=== PATIENT | female | born 1965 | race Caucasian/White ===

== ENCOUNTER → 2016-07-02 | Outpatient (REF) | payer BC ==
[2016-07-02 15:07] LABS: VITAMIN B12 LEVEL 368 PG/ML
[2016-07-02 15:08] LABS: FOLATE > 24.0 NG/ML
[2016-07-02 15:15] LABS: PERCENT SATURATION 19.5 % (13.2-37.4); TOTAL IRON BINDING CAPACITY 498 UG/DL (250-450)
== END ==
LOC: M LAB REF 13:46
PROVIDERS: ATTEND Internal Medicine
DX: Z98.84 Bariatric surgery status (principal)

== ENCOUNTER → 2017-04-21 | Outpatient (REF) | payer BC ==
[2017-04-21 15:06] LABS: INFLUENZA A AMPLIFICATION POSITIVE (NEGATIVE); INFLUENZA B AMPLIFICATION NEGATIVE (NEGATIVE); RSV AMPLIFICATION NEGATIVE (NEGATIVE)
== END ==
LOC: M LAB REF 14:05
DX: J11.1 Influenza due to unidentified influenza virus with other respiratory manifestations (principal)

== ENCOUNTER → 2017-08-26 | Outpatient (REF) | payer BC ==
[2017-08-26 13:02] LABS: FOLATE > 24.0 NG/ML; VITAMIN B12 LEVEL 392 PG/ML
[2017-08-26 13:22] LABS: IRON (FE) 56 UG/DL (50-170); PERCENT SATURATION 10.2 % (13.2-45.0); TOTAL IRON BINDING CAPACITY 549 UG/DL (250-450)
== END ==
LOC: M LAB REF 12:21
DX: D50.9 Iron deficiency anemia, unspecified (principal)
CPT/HCPCS: 82746

== ENCOUNTER → 2018-12-04 | Outpatient (REF) | payer BC ==
[2018-12-04 19:27] LABS: PERCENT SATURATION 7.5 % (13.2-45.0)
[2018-12-04 19:48] LABS: FOLATE 16.3 NG/ML
== END ==
LOC: M LAB REF 16:49
PROVIDERS: ATTEND Internal Medicine
DX: Z98.84 Bariatric surgery status (principal)

== ENCOUNTER → 2019-01-20 | Outpatient (REF) | payer BC ==
[2019-01-20 13:02] LABS: PERCENT SATURATION 7.7 % (13.2-45.0)
== END ==
LOC: M LAB REF 12:42
PROVIDERS: ATTEND Internal Medicine
DX: D50.9 Iron deficiency anemia, unspecified (principal)

== ENCOUNTER 2019-04-05 10:19 | Day surgery (SDC) | payer BC ==
[~2019-04-05] VITALS: Ht 162.6 cm; Wt 77.6 kg
[~2019-04-05 10:19] MED LIST: BELS1TAB2 PO; BIOT1CAP2 PO; CRAN200C PO; FERR325T3 PO; FLORCAP10 PO; HYDR-3363 PO; INVO300T PO; METF750T36 PO; NS 1,000 ML IV SCH; ROSU10TA6 PO; SUPETAB44 PO; VITA100T59 PO; [UNRECOGNIZED DRUG - OTHER] PA
[2019-04-05] MEDS ORDERED: fentaNYL 100 MCG/2 ML INJECTION (J3010) As Ordered ONE (12:00)
[2019-04-05] MEDS ORDERED: LIDOCAINE 2% INJ 100 MG/5 ML SDV (FOR ANES.) As Ordered ONE (12:04)
[2019-04-05] MEDS ORDERED: propofoL 200 MG/20 ML VIAL As Ordered ONE (12:04)
--- NOTE | 2019-04-05 12:39 | ROOR ---
Patient Name: June Macho Procedure Date: 04/05/2019 11:57 AM Date of : 1965 Age: 53 Room: [facility] Gender: Female Note Status: Finalized Procedure: Upper Endoscopy + Biopsies Indications: Iron deficiency anemia Providers: Jose Travis MD Referring MD: ELISABETH TORREZ JR, MD Requesting Provider: Medicines: Monitored Anesthesia Care Complications: No immediate complications. Procedure: Pre-Anesthesia Assessment: - The heart rate, respiratory rate, oxygen saturations, blood pressure, adequacy of pulmonary ventilation, and response to care were monitored throughout the procedure. The Endoscope was introduced through the mouth, and advanced to the second part of duodenum. The upper GI endoscopy was accomplished without difficulty. The patient tolerated the procedure well. Findings: The Z-line was regular and was found 40 cm from the incisors. Multiple biopsies were obtained with cold forceps for evaluation to rule out Ma's Esophagus randomly at the gastroesophageal junction. A small hiatal hernia was present. Evidence of a gastric bypass was found. A gastric pouch with a small size was found. The staple line appeared intact. The gastrojejunal anastomosis was characterized by healthy appearing mucosa. This was traversed. The [id number] limb was characterized by healthy appearing mucosa. The jejunojejunal anastomosis was characterized by healthy appearing mucosa. The exam was otherwise without abnormality. Impression: - Z-line regular, 40 cm from the incisors. - Small hiatal hernia. - Gastric bypass with a small-sized pouch and intact staple line. Gastrojejunal anastomosis characterized by healthy appearing mucosa. - The examination was otherwise normal. - Multiple biopsies were obtained at the gastroesophageal junction. Recommendation: - Patient has a contact number available for emergencies. The signs and symptoms of potential delayed complications were discussed with the patient. Return to normal activities tomorrow. Written discharge instructions were provided to the patient. - Discharge patient to home. - Follow an antireflux regimen. - Continue present medications. - Await pathology results. - Telephone GI clinic for pathology results in 1 week. - Return to referring physician. - The findings and recommendations were discussed with the patient's family. Jose Travis MD Jose Travis MD 04/05/2019 12:38:43 PM Electronically signed by Jose Travis MD Number of Addenda: 0 Note Initiated On: 04/05/2019 11:57 AM Estimated Blood Loss: Estimated blood loss: none.
--- NOTE | 2019-04-05 12:41 | ROOR ---
Patient Name: June Macho Procedure Date: 04/05/2019 11:57 AM Date of : 1965 Age: 53 Room: [facility] Gender: Female Note Status: Finalized Procedure: Total Colonoscopy to Cecum Indications: Screening for colorectal malignant neoplasm Providers: Jose Travis MD Referring MD: ELISABETH TORREZ JR, MD Requesting Provider: Medicines: Monitored Anesthesia Care Complications: No immediate complications. Procedure: Pre-Anesthesia Assessment: - The heart rate, respiratory rate, oxygen saturations, blood pressure, adequacy of pulmonary ventilation, and response to care were monitored throughout the procedure. The Colonoscope was introduced through the anus and advanced to the cecum, identified by appendiceal orifice and ileocecal valve. The colonoscopy was performed without difficulty. The patient tolerated the procedure well. The quality of the bowel preparation was excellent. Findings: The perianal and digital rectal examinations were normal. No other significant abnormalities were identified in a careful examination of the remainder of the colon. The exam was otherwise without abnormality on direct and retroflexion views. Impression: - The examination was otherwise normal on direct and retroflexion views. - No specimens collected. - The exam was otherwise normal to the cecum. Recommendation: - Patient has a contact number available for emergencies. The signs and symptoms of potential delayed complications were discussed with the patient. Return to normal activities tomorrow. Written discharge instructions were provided to the patient. - High fiber diet. - Discharge patient to home. - Continue present medications. - Repeat colonoscopy in 10 years for screening purposes. - Return to referring physician. - The findings and recommendations were discussed with the patient's family. Jose Travis MD Jose Travis MD 04/05/2019 12:40:52 PM Electronically signed by Jose Travis MD Number of Addenda: 0 Note Initiated On: 04/05/2019 11:57 AM Estimated Blood Loss: Estimated blood loss: none.
[2019-04-05 13:00] VITALS: BP 134/59
== END 2019-04-05 13:12 | disposition home or self-care (01) ==
LOC: M OPP 10:19
PROVIDERS: ATTEND Internal Medicine Gastroenterology
DX: D50.9 Iron deficiency anemia, unspecified (principal); K44.9 Diaphragmatic hernia without obstruction or gangrene; Z98.84 Bariatric surgery status; Z12.11 Encounter for screening for malignant neoplasm of colon; E11.9 Type 2 diabetes mellitus without complications; J45.909 Unspecified asthma, uncomplicated; Z87.440 Personal history of urinary (tract) infections; Z79.899 Other long term (current) drug therapy; Z79.84 Long term (current) use of oral hypoglycemic drugs; Z88.5 Allergy status to narcotic agent
CPT/HCPCS: 43239; 45378; 88305; J3010

== ENCOUNTER → 2019-06-14 | Outpatient (REF) | payer BC ==
[~2019-06-14] MED LIST changes: -NS 1,000 ML IV SCH
[2019-06-15 12:55] LABS: PERCENT SATURATION 16.9 % (13.2-45.0)
== END ==
LOC: M LAB REF 12:11
PROVIDERS: ATTEND Internal Medicine
DX: D50.9 Iron deficiency anemia, unspecified (principal)

== ENCOUNTER → 2020-03-12 | Outpatient (CLI) | payer SELFPAY | LOC: M LABSMTC 11:21 | PROVIDERS: ATTEND Pediatrics | DX: Z20.828 Contact with and (suspected) exposure to other viral communicable diseases (principal) ==

== ENCOUNTER → 2020-05-09 | Outpatient (REF) | payer BC ==
[2020-05-09 12:16] LABS: PERCENT SATURATION 24.7 % (13.2-45.0)
[2020-05-09 12:28] LABS: FOLATE 6.4 NG/ML
== END ==
LOC: M LAB REF 11:18
PROVIDERS: ATTEND Internal Medicine
DX: D50.9 Iron deficiency anemia, unspecified (principal); Z98.84 Bariatric surgery status

== ENCOUNTER → 2020-10-31 | Outpatient (REF) | payer BC ==
[2020-10-31 13:13] LABS: APPEARANCE, URINE HAZY (CLEAR); BACTERIA, URINE AUTO 1+ (NEGATIVE); BILIRUBIN, URINE AUTO NEGATIVE (NEGATIVE); BLOOD, URINE BLOOD 1+ (NEGATIVE); COLOR, URINE YELLOW (YELLOW); GLUCOSE, URINE (UA) AUTO 3+ mg/dL (NEGATIVE); KETONE, URINE AUTO NEGATIVE (NEGATIVE); LEUKOCYTE ESTERASE, URINE AUTO 1+ (NEGATIVE); MUCUS, URINE SMALL (NEGATIVE); NITRITE, URINE AUTO NEGATIVE (NEGATIVE); PROTEIN, URINE AUTO NEGATIVE (NEGATIVE); RBC, URINE AUTO 2 /HPF (0-3); SPECIFIC GRAVITY URINE AUTO 1.032 (1.002-1.035); SQUAMOUS EPITHELIAL CELL UR AU 2 /HPF (0-6); UROBILINOGEN, URINE AUTO 0.2 mg/dL (0.0-2.0); WBC, URINE AUTO 6 /HPF (0-3)
== END ==
LOC: M LAB REF 11:44
PROVIDERS: ATTEND Physician Assistant Medical
DX: N39.0 Urinary tract infection, site not specified (principal)

== ENCOUNTER → 2021-03-12 | Outpatient (REF) | LOC: M LABSMTC 09:19 | PROVIDERS: ATTEND Pediatrics | DX: Z11.52 Encounter for screening for COVID-19 (principal) ==

== ENCOUNTER → 2021-09-20 | Outpatient (REF) | payer BC ==
[2021-09-20 12:56] LABS: PERCENT SATURATION 8.7 % (13.2-45.0)
== END ==
LOC: M LAB REF 12:07
PROVIDERS: ATTEND Internal Medicine
DX: Z98.84 Bariatric surgery status (principal); D50.9 Iron deficiency anemia, unspecified

== ENCOUNTER → 2021-12-31 | Outpatient (REF) | payer BC | LOC: M LAB REF 16:07 | PROVIDERS: ATTEND Internal Medicine | DX: Z98.84 Bariatric surgery status (principal); D50.9 Iron deficiency anemia, unspecified ==

== ENCOUNTER → 2022-07-05 | Outpatient (REF) | payer BC ==
[2022-07-05 13:45] LABS: PERCENT SATURATION 22.9 % (13.2-45.0)
== END ==
LOC: M LAB REF 12:10
PROVIDERS: ATTEND Internal Medicine
DX: Z98.84 Bariatric surgery status (principal); D50.9 Iron deficiency anemia, unspecified

== ENCOUNTER → 2022-12-25 | Outpatient (REF) | payer BC | LOC: M SFHCWAGY 10:17 | PROVIDERS: ATTEND Obstetrics & Gynecology | DX: Z12.4 Encounter for screening for malignant neoplasm of cervix (principal); Z01.419 Encounter for gynecological examination (general) (routine) without abnormal findings; Z77.9 Other contact with and (suspected) exposures hazardous to health ==

== ENCOUNTER → 2023-02-17 | Outpatient (REF) | payer BC | LOC: M SFHCWAGY 17:25 | PROVIDERS: ATTEND Obstetrics & Gynecology | DX: N93.9 Abnormal uterine and vaginal bleeding, unspecified (principal) ==

== ENCOUNTER → 2023-10-21 | Outpatient (REF) | payer BC ==
[~2023-10-21] MED LIST changes: -ROSU10TA6 PO; +ROSU10TA61 PO
[2023-10-21 18:54] LABS: IRON (FE) 16 UG/DL (50-170); PERCENT SATURATION 3.7 % (13.2-45.0); PHOSPHORUS LEVEL 4.3 MG/DL (2.5-4.9); TOTAL IRON BINDING CAPACITY 429 UG/DL (250-425)
[2023-10-21 19:14] LABS: HEPATITIS B SURFACE ANTIGEN NEGATIVE (NEGATIVE)
[2023-10-21 19:35] LABS: HEPATITIS C VIRUS ABY INDEX < 0.02 INDEX (<0.8)
== END ==
LOC: M LAB REF 16:27
PROVIDERS: ATTEND Internal Medicine
DX: D50.9 Iron deficiency anemia, unspecified (principal); R74.01 Elevation of levels of liver transaminase levels

== ENCOUNTER → 2023-11-18 | Outpatient (REF) | payer BC | LOC: M LAB REF 11:38 | PROVIDERS: ATTEND Internal Medicine | DX: D50.9 Iron deficiency anemia, unspecified (principal) ==

== ENCOUNTER → 2023-12-08 | Outpatient (CLI) | payer BC | LOC: M RAD 08:49 | PROVIDERS: ATTEND Internal Medicine | DX: R74.01 Elevation of levels of liver transaminase levels (principal) ==

== ENCOUNTER → 2023-12-12 | Outpatient (CLI) | payer BC | LOC: M WHC 13:45 | PROVIDERS: ATTEND Obstetrics & Gynecology | DX: N93.9 Abnormal uterine and vaginal bleeding, unspecified (principal) ==

== ENCOUNTER → 2024-01-01 | Outpatient (REF) | payer BC ==
[2024-01-01 14:25] LABS: PERCENT SATURATION 14.6 % (13.2-45.0)
== END ==
LOC: M LAB REF 12:37
PROVIDERS: ATTEND Internal Medicine
DX: D50.9 Iron deficiency anemia, unspecified (principal)

== ENCOUNTER → 2024-02-18 | Outpatient (CLI) | payer BC ==
[~2024-02-18] MED LIST changes: +CLON0.5T2 PO; +FARX1TAB3 PO; +GABA-1171 PO; +SEMA0.257; +VITA100093 PO
== END ==
LOC: M EKG 13:58
PROVIDERS: ATTEND Anesthesiology
DX: R00.1 Bradycardia, unspecified (principal); E11.9 Type 2 diabetes mellitus without complications

== ENCOUNTER 2024-03-02 06:04 | Day surgery (SDC) | payer BC ==
[~2024-03-02] VITALS: Ht 160 cm; Wt 62.6 kg
[~2024-03-02 06:04] MED LIST changes: +LR 1,000 ML IV SCH; +ONDANSETRON 4MG 2ML VIAL IV PRN; +fentaNYL 100 MCG/2 ML INJECTION IV PRN; +traMADol 50 MG TAB PO ONE
[2024-03-02] MEDS ORDERED: LR 1,000 ML IV SCH (06:30)
[2024-03-02 06:56] LABS: HEMATOCRIT 39.9 % (36.0-47.0); HEMOGLOBIN 12.6 g/dl (12.0-15.5); MEAN CORPUSCULAR HEMOGLOBIN 26.2 pg (27.0-33.0); MEAN CORPUSCULAR HGB CONC 31.6 g/dl (32.0-36.5); PLATELET COUNT, AUTOMATED 291 10^3/uL (150-450); RED BLOOD COUNT 4.81 10^6/uL (4.00-5.40); WHITE BLOOD COUNT 5.2 10^3/uL (4.0-10.0)
[2024-03-02] MEDS ORDERED: propofoL 200 MG/20 ML VIAL As Ordered ONE (06:57)
[2024-03-02] MEDS ORDERED: LIDOCAINE 2% 100MG/5ML SDV (FOR ANES.) As Ordered ONE (06:57)
[2024-03-02] MEDS ORDERED: ONDANSETRON 4MG 2ML VIAL As Ordered ONE (06:58)
[2024-03-02] MEDS ORDERED: KETOROLAC 60MG 2ML VIAL As Ordered ONE (06:58)
[2024-03-02] MEDS ORDERED: fentaNYL 100 MCG/2 ML INJECTION As Ordered ONE (07:01)
[2024-03-02] MEDS ORDERED: MIDAZOLAM INJ 2MG/2ML VIAL As Ordered ONE (07:01)
[2024-03-02] MEDS ORDERED: ACETAMINOPHEN 1000MG/100ML IV BAG As Ordered ONE (07:58)
[2024-03-02] MEDS ORDERED: MORPHINE 2 MG/ML 1ML VIAL IV PRN (08:25)
[2024-03-02] MEDS ORDERED: ONDANSETRON 4MG 2ML VIAL IV PRN (08:25)
[2024-03-02] MEDS ORDERED: fentaNYL 100 MCG/2 ML INJECTION IV PRN (08:25)
[2024-03-02] MEDS: oxyCODONE 5MG TAB PO PRN (09:10)
[2024-03-02 10:22] VITALS: BP 112/66; TEMP 97.3; O2SAT 99
== END 2024-03-02 10:24 | disposition home or self-care (01) ==
LOC: M SDC 06:04
PROVIDERS: ATTEND Obstetrics & Gynecology
DX: N93.9 Abnormal uterine and vaginal bleeding, unspecified (principal); N95.0 Postmenopausal bleeding; E11.9 Type 2 diabetes mellitus without complications; Z79.899 Other long term (current) drug therapy
CPT/HCPCS: 36415; 58563; 81025; 85027; 86850; 86900; 86901; 88305; J0131; J1100; J1885; J2250; J2405; J3010

== ENCOUNTER → 2024-04-19 | Outpatient (REF) | payer OTHER ==
[~2024-04-19] MED LIST changes: -LR 1,000 ML IV SCH; -ONDANSETRON 4MG 2ML VIAL IV PRN; -fentaNYL 100 MCG/2 ML INJECTION IV PRN; -traMADol 50 MG TAB PO ONE
== END ==
LOC: M LAB REF 12:41
PROVIDERS: ATTEND Internal Medicine
DX: Z98.84 Bariatric surgery status (principal)

== ENCOUNTER → 2024-10-22 | Outpatient (REF) | payer OTHER ==
[2024-10-22 12:44] LABS: IRON (FE) 78.0 UG/DL (50-170); PERCENT SATURATION 18.7 % (13.2-45.0); PHOSPHORUS LEVEL 5.0 MG/DL (2.5-4.9); TOTAL 25(OH) VITAMIN D 43.3 NG/ML (20.0-100.0); VITAMIN B12 LEVEL 1188.0 PG/ML (211-911)
[2024-10-26 21:47] LABS: VITAMIN A, RETINOL LEVEL 48 mcg/dL (38-98)
[2024-10-29 08:33] LABS: VITAMIN B1 LEVEL WHOLE BLOOD 230 nmol/L (78-185)
== END ==
LOC: M LAB REF 11:45
PROVIDERS: ATTEND Internal Medicine
DX: Z98.84 Bariatric surgery status (principal)